=== PATIENT | female | born 1990 | race Caucasian/White ===

== ENCOUNTER → 2020-05-16 | Outpatient (REF) | payer BC ==
[2020-05-16 11:57] LABS: HEMATOCRIT 36.5 % (36.0-52.0); HEMOGLOBIN 10.9 g/dl (12.0-18.0); MEAN CORPUSCULAR HEMOGLOBIN 25.5 pg; MEAN CORPUSCULAR HGB CONC 29.9 g/dl (32.0-36.5); MEAN CORPUSCULAR VOLUME 85.5 fl (80.0-96.0); PLATELET COUNT, AUTOMATED 288 10^3/uL (150-450); RED BLOOD COUNT 4.27 10^6/uL (4.10-5.30); WHITE BLOOD COUNT 7.8 10^3/uL (4.5-12.0)
[2020-05-16 13:02] LABS: ALBUMIN 3.7 GM/DL (3.2-5.2); ALT/SGPT 20 U/L (12-78); BILIRUBIN,TOTAL 0.3 MG/DL (0.2-1.0); BLOOD UREA NITROGEN 8 MG/DL (7-18); CALCIUM LEVEL 8.8 MG/DL (8.4-10.2); CARBON DIOXIDE LEVEL 24 MEQ/L (21-32); CHLORIDE LEVEL 108 MEQ/L (98-107); CHOLESTEROL LEVEL 155 MG/DL (<200); CHOLESTEROL RISK RATIO 3.522 (<5); CREATININE FOR GFR 0.55 MG/DL (0.55-1.30); GLOMERULAR FILTRATION RATE > 60.0 (>60); GLUCOSE, FASTING 95 MG/DL (40-105); HDL CHOLESTEROL 44 MG/DL (>40.0); LDL CHOLESTEROL 93 MG/DL (<100); NON-HDL-C 111 MG/DL; POTASSIUM SERUM 4.6 MEQ/L (3.5-5.1); SODIUM LEVEL 140 MEQ/L (136-145); TOTAL 25(OH) VITAMIN D 12.5 NG/ML (30.0-100.0); TOTAL PROTEIN 6.7 GM/DL (6.4-8.2); TRIGLYCERIDES LEVEL 88 MG/DL (<150)
== END ==
LOC: M SFHCPLAZ 08:15
PROVIDERS: ATTEND Physician Assistant
DX: Z00.00 Encounter for general adult medical examination without abnormal findings (principal); R79.89 Other specified abnormal findings of blood chemistry; Z13.220 Encounter for screening for lipoid disorders

== ENCOUNTER → 2020-06-15 | Outpatient (REF) | payer BC ==
[2020-06-15 13:34] LABS: BASO # 0.1 10^3/uL (0.0-0.2); BASO % 0.7 % (0.0-1.0); EOS # 0.1 10^3/uL (0.0-0.5); EOS % 0.9 % (0.0-3.0); HEMATOCRIT 37.8 % (36.0-52.0); HEMOGLOBIN 11.7 g/dl (12.0-18.0); LYMPH # 2.8 10^3/uL (1.5-5.0); LYMPH % 34.4 % (24.0-44.0); MEAN CORPUSCULAR HEMOGLOBIN 25.7 pg; MEAN CORPUSCULAR VOLUME 82.9 fl (80.0-96.0); MONO # 0.4 10^3/uL (0.0-0.8); MONO % 4.5 % (0.0-5.0); NEUTROPHILS # 4.8 10^3/uL (1.5-8.5); NEUTROPHILS % 59.3 % (36.0-66.0); PLATELET COUNT, AUTOMATED 311 10^3/uL (150-450); RED BLOOD COUNT 4.56 10^6/uL (4.10-5.30); WHITE BLOOD COUNT 8.1 10^3/uL (4.5-12.0)
[2020-06-16 18:09] LABS: FREE KAPPA LIGHT CHAINS SERUM 15.1 mg/L (3.3-19.4); FREE LAMBDA LIGHT CHAINS SERUM 15.7 mg/L (5.7-26.3); KAPPA/LAMBDA RATIO SERUM 0.96 (0.26-1.65)
== END ==
LOC: M SFHCPLAZ 09:07
PROVIDERS: ATTEND Physician Assistant
DX: D64.9 Anemia, unspecified (principal)

== ENCOUNTER 2020-07-28 07:00 | Outpatient (RCR) | payer BC | END 2020-08-03 | LOC: M PT 07:00 | PROVIDERS: ATTEND Psychiatry & Neurology Neurology | DX: M62.81 Muscle weakness (generalized) (principal) ==

== ENCOUNTER → 2020-08-14 | Outpatient (CLI) | payer SELFPAY | LOC: M LABSMTC 08:21 | PROVIDERS: ATTEND Pediatrics | DX: Z20.822 Contact with and (suspected) exposure to COVID-19 (principal) ==

== ENCOUNTER 2020-08-17 21:33 | Emergency (ER) | payer BC ==
[~2020-08-17] VITALS: Ht 157.5 cm; Wt 70.0 kg
--- NOTE | 2020-08-18 00:52 | REPVR ---
PROCEDURE INFORMATION: Exam: US Duplex Left Lower Extremity Veins, Limited Exam date and time: 08/18/2020 12:03 AM Age: 30 years old Clinical indication: Pain; Leg, lower; Left; Additional info: Pain alt sensation L leg TECHNIQUE: Imaging protocol: Real-time Duplex ultrasound of the Left Lower Extremity with 2-D kam scale, color Doppler flow and spectral waveform analysis with image documentation. Limited exam focused on the left lower extremity veins. COMPARISON: No relevant prior studies available. FINDINGS: Left deep veins: Unremarkable. The common femoral, femoral and popliteal veins are patent without thrombus. Normal compressibility, augmentation response and Doppler waveforms. Left superficial veins: Unremarkable. Saphenofemoral junction is patent without thrombus. Soft tissues: Unremarkable. IMPRESSION: No sonographic evidence of deep vein thrombosis. Electronically signed by: Joshua Sharpe On 08/18/2020 00:52:35 AM
[2020-08-18 01:01] VITALS: BP 120/88
== END 2020-08-18 01:20 | disposition home or self-care (01) ==
LOC: M ED 21:33
DX: M79.652 Pain in left thigh (principal); R06.02 Shortness of breath; D64.9 Anemia, unspecified